=== PATIENT | female | born 2000 | race Hispanic/Latino ===

== ENCOUNTER 2021-07-31 17:52 | Emergency (ER) | payer OTHER, MEDICAID, SELFPAY ==
[2021-07-31 18:10] VITALS: BP 122/80; PULSE 97; RESP 22; TEMP 36.4; O2SAT 97; BMI 41.5
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
[2021-07-31] MEDS: IBUPROFEN 400 MG TABLET 800 MG PO (19:49)
[2021-07-31] MEDS: ACETAMINOPHEN 325 MG TABLET 650 MG PO (19:50)
== END 2021-07-31 19:54 | disposition home or self-care (01) ==
PROVIDERS: Emergency Provider Physician Assistant
DX: M79.644 Pain in right finger(s) (principal); W51.XXXA Accidental striking against or bumped into by another person, initial encounter
CPT/HCPCS: 73130; 99283; 99284

== ENCOUNTER 2021-11-18 23:52 | Emergency (ER) | payer OTHER, MEDICAID, SELFPAY ==
--- NOTE | 2021-11-19 00:02 | DI.RAD.S_ITS ---
PROCEDURE: XR KNEE RT 3V INDICATIONS: fall with knee pain TECHNIQUE: 3 views of the knee were acquired. COMPARISON: None. FINDINGS: Bones: No fractures or dislocations. No suspicious bony lesions. Soft tissues: No joint effusion. No suspicious soft tissue calcifications. IMPRESSION: No osseous trauma found. Dictated by: Candelario Campo M.D. on 11/19/2021 at 0:40 Approved by: Candelario Campo M.D. on 11/19/2021 at 0:40
--- NOTE | 2021-11-19 00:02 | DI.RAD.S_ITS ---
PROCEDURE: XR ANKLE RT MIN 3V INDICATIONS: fall with ankle pain TECHNIQUE: 3 views of the ankle were acquired. COMPARISON: None. FINDINGS: Bones: No fractures or dislocations. Ankle mortise is normally aligned. No suspicious bony lesions. Soft tissues: No tibiotalar joint effusion. Achilles tendon appears normal. IMPRESSION: No trauma found. Dictated by: Candelario Campo M.D. on 11/19/2021 at 0:40 Approved by: Candelario Campo M.D. on 11/19/2021 at 0:41
--- NOTE | 2021-11-19 00:02 | DI.RAD.S_ITS ---
PROCEDURE: XR HIP W PEL IF DONE RT 2V INDICATIONS: fall with R hip pain TECHNIQUE: AP pelvis with lateral view(s) of the right hip(s). COMPARISON: None. FINDINGS: Bones: No fractures or dislocations. Pelvic ring appears intact. No suspicious bony lesions. Soft tissues: The visualized bowel gas pattern is normal. No suspicious soft tissue calcifications. IMPRESSION: No trauma found. Dictated by: Candelario Campo M.D. on 11/19/2021 at 0:39 Approved by: Candelario Campo M.D. on 11/19/2021 at 0:40
--- NOTE | 2021-11-19 00:02 | DI.RAD.S_ITS ---
PROCEDURE: XR LUMBAR SPINE 2-3V INDICATIONS: fall with back pain TECHNIQUE: 2 views of the lumbar spine were acquired. COMPARISON: None. FINDINGS: Bones: 5 [id number] vertebrae are present. There is normal bony alignment. No vertebral body compression fractures. No suspicious bony lesions. Soft tissues: Overlying bowel gas pattern is normal. No suspicious soft tissue calcifications. Surgical clips suggest prior appendectomy. IMPRESSION: No trauma found. Surgical clips at the right lower quadrant suggest prior appendectomy. Dictated by: Candelario Campo M.D. on 11/19/2021 at 0:41 Approved by: Candelario Campo M.D. on 11/19/2021 at 0:42
--- NOTE | 2021-11-19 00:04 | ED_ITS ---
HPI - Fall General Chief Complaint: Fall Stated Complaint: Rt. foot/leg/hip pain due to fall Time Seen by Provider: 11/19/21 00:02 History of Present Illness HPI Narrative: 21-year-old female nonsmoker with noncontributory medical history presents with a friend and a chief complaint of multiple injury suffered as a result of a ground level fall earlier today. At about 6:00 p.m. today she was getting into her car when her right ankle got caught up and caused her to fall onto her right side landing on her hip, knee and ankle. She had some minimal pain initially but states as the day has gone on she is developed increasing pain that starts in her low back goes to her hip, knee and ankle. She has severe pain in his unable to weight bear. She denies any numbness, tingling or weakness. She denies any head neck injury. She denies loss of control of bowel or bladder. She took Motrin with little to no relief prior to her arrival. She states that her last menstrual cycle was a few weeks ago and there is 0 chance of her being . Related Data Previous Rx's Medication Instructions Recorded cyclobenzaprine 10 mg tablet 10 mg PO TID PRN muscle spasm #14 11/19/21 tabs gabapentin 300 mg capsule 300 mg PO BEDTIME #14 caps 11/19/21 hydrocodone 5 mg-acetaminophen 325 1 tab PO Q4-6H PRN pain #10 tabs 11/19/21 mg tablet ketorolac 10 mg tablet 10 mg PO Q6H PRN pain #14 tabs 11/19/21 methylprednisolone 4 mg tablets in See Rx Instructions PO .COMPLEX 11/19/21 a dose pack (Medrol (Antonio)) #21 ea Allergies Allergy/AdvReac Type Severity Reaction Status Date / Time Bleach (Sodium Hypochlorite) Allergy Verified 07/31/21 18:14 Review of Systems Review of Systems Narrative: GENERAL: Denies chills, fatigue, malaise, fever, sweats. HEENT: Denies sinus pain, ear pain, sore throat, difficulty swallowing, dizziness. RESPIRATORY: Denies dyspnea, cough, wheezing, hemoptysis, sputum. CARDIOVASCULAR: Denies chest pain, palpitations, orthopnea, edema, GASTROINTESTINAL: Denies nausea, vomiting, abdominal pain, diarrhea, constipation, melena. : Denies dysuria, frequency, incontinence, hematuria, urinary retention. MUSCULOSKELETAL: See HPI SKIN: Denies rash, skin lesions, or other NEUROLOGIC: Denies weakness, headache, numbness, change in speech, confusion, seizures, incoordination. PSYCHIATRIC: No concerning psychosocial issues. 12 point review of systems is negative except for those stated above Patient History Social History Smoking Status: Former smoker Smoking Status: Former smoker alcohol intake frequency: holidays/special occasions only Substance Use Type: does not use Exam Narrative Exam Narrative: GENERAL: [21] year old patient appears stated age. Well-developed patient, in mild distress. Obviously in pain, enters department in wheelchair HEAD: Atraumatic. Normocephalic. EYES: Pupils equal round and reactive. Extraocular motions intact. No scleral icterus. No injection or drainage. ENT: Nose without bleeding, purulent drainage. Throat without erythema, tonsillar hypertrophy or exudate. Airway patent. NECK: Trachea midline. Non tender CARDIOVASCULAR: Regular rate and rhythm without murmurs, gallops, or rubs. RESPIRATORY: Clear to auscultation. Breath sounds equal bilaterally. No wheezes, rales, or rhonchi. GASTROINTESTINAL: Abdomen soft, non-tender, nondistended. EXTREMITIES: Full but painful range of motion of right hip, knee and ankle. She has increased pain on palpation but no obvious ligamentous instability or effusions, these injuries are closed and neurovascularly intact. BACK: hook tender but free of any obvious external abnormalities. Patient exam notes decreased range of motion and muscle spasm, but no CVA tenderness, or vertebral point tenderness. There are no symptoms of cauda equina such as saddle anesthesia, and decreased reflexes, decreased sensation or strength. NEURO: AOx3. SKIN: No rash or erythema of visible areas Initial Vital Signs Initial Vital Signs: Vital Signs Temperature 98.3 F 11/19/21 00:06 Pulse Rate 78 11/19/21 00:06 Respiratory Rate 18 11/19/21 00:06 Blood Pressure 153/86 H 11/19/21 00:06 Pulse Oximetry 99 11/19/21 00:06 Oxygen Delivery Method 11/19/21 00:06 Course Orders Ordered: ED Orders 11/19/21 00:02 XR ankle RT min 3V Stat XR hip w pel if done RT 2V Stat XR knee RT 3V Stat XR lumbar spine 2-3V Stat Discontinued Medications Hydrocodone Bitart/Acetaminophen (Hydrocodone/Acet 5/325 Prepack) 1 bottle MISC SEEINSTR ONE Stop: 11/19/21 00:05 Last Admin: 11/19/21 00:16 Dose: 1 bottle Documented By: NADIA Prednisone (Prednisone 20 Mg Tablet) 40 mg PO NOW ONE Stop: 11/19/21 01:08 Vital Signs Vital signs: Vital Signs - 8 hr 11/19/21 00:06 Temperature 98.3 F Pulse Rate 78 Respiratory Rate 18 Blood Pressure 153/86 H Pulse Oximetry 99 Oxygen Delivery Method Room Air MDM - Fall Imaging Data Extremity x-ray #1: Radiologist's Impression: [address] [address] XRay Report Signed Patient: Ama Mcghee MR#: [id number] : 2000 Acct:[id number] Age/Sex: 21 / F Date of Service: 11/19/21 Loc: ED Accession Number: [id number] ?? Procedure: XR ankle RT min 3V Ordering Provider: Bernardo Garcia D.O. PROCEDURE:? XR ANKLE RT MIN 3V ? INDICATIONS:? fall with ankle pain ? TECHNIQUE:? 3 views of the ankle were acquired.? ? COMPARISON:? None. ? FINDINGS:? ? Bones:? No fractures or dislocations.? Ankle mortise is normally aligned.? No suspicious bony lesions.? ? Soft tissues:? No tibiotalar joint effusion.? Achilles tendon appears normal.? ? ? IMPRESSION:? No trauma found. ? Dictated by: Candelario Campo M.D. on 11/19/2021 at 0:40 ? ? Approved by: Candelario Campo M.D. on 11/19/2021 at 0:41 ? Extremity x-ray #2: Radiologist's Impression: [address] [address] XRay Report Signed Patient: Ama Mcghee MR#: [id number] : 2000 Acct:[id number] Age/Sex: 21 / F Date of Service: 11/19/21 Loc: ED Accession Number: [id number] ?? Procedure: XR hip w pel if done RT 2V Ordering Provider: Bernardo Garcia D.O. PROCEDURE:? XR HIP W PEL IF DONE RT 2V ? INDICATIONS:? fall with R hip pain ? TECHNIQUE:? AP pelvis with lateral view(s) of the right hip(s).? ? COMPARISON:? None. ? FINDINGS:? ? Bones:? No fractures or dislocations.? Pelvic ring appears intact.? No suspicious bony lesions.? ? Soft tissues:? The visualized bowel gas pattern is normal.? No suspicious soft tissue calcifications.? ? ? IMPRESSION:? No trauma found. ? Dictated by: Candelario Campo M.D. on 11/19/2021 at 0:39 ? ? Approved by: Candelario Campo M.D. on 11/19/2021 at 0:40? Extremity x-ray #3: Radiologist's Impression: [place] [address] XRay Report Signed Patient: Ama Mcghee MR#: [id number] : 2000 Acct:[id number] Age/Sex: 21 / F Date of Service: 11/19/21 Loc: ED Accession Number: [id number] ?? Procedure: XR knee RT 3V Ordering Provider: Bernardo Garcia D.O. PROCEDURE:? XR KNEE RT 3V ? INDICATIONS:? fall with knee pain ? TECHNIQUE:? 3 views of the knee were acquired.? ? COMPARISON:? None. ? FINDINGS:? ? Bones:? No fractures or dislocations.? No suspicious bony lesions.? ? Soft tissues:? No joint effusion.? No suspicious soft tissue calcifications.? ? ? IMPRESSION:? No osseous trauma found. ? ? Dictated by: Candelario Campo M.D. on 11/19/2021 at 0:40 ? ? Approved by: Candelario Campo M.D. on 11/19/2021 at 0:40 ? L Spine: Radiologist's Impression: Close Lumbar Spine X-Ray (Signed) Candelario Campo - 11/19/21 Knee X-Ray (Signed) Candelario Campo - 11/19/21 Hip X-Ray (Signed) Candelario Campo - 11/19/21 Ankle X-Ray (Signed) Candelario Campo - 11/19/21 Hand X-Ray (Signed) Salvatore Trejo - 07/31/21 Launch?Image [address] [address] XRay Report Signed Patient: Ama Mcghee MR#: [id number] : 2000 Acct:[id number] Age/Sex: 21 / F Date of Service: 11/19/21 Loc: ED Accession Number: [id number] ?? Procedure: XR lumbar spine 2-3V Ordering Provider: Bernardo Garcia D.O. PROCEDURE:? XR LUMBAR SPINE 2-3V ? INDICATIONS:? fall with back pain ? TECHNIQUE:? 2 views of the lumbar spine were acquired.? ? COMPARISON:? None. ? FINDINGS:? ? Bones:? 5 [id number] vertebrae are present.? There is normal bony alignment.? No vertebral body compression fractures.? No suspicious bony lesions.? ? Soft tissues:? Overlying bowel gas pattern is normal.? No suspicious soft tissue calcifications.? Surgical clips suggest prior appendectomy. ? ? IMPRESSION:? No trauma found.? Surgical clips at the right lower quadrant suggest prior appendectomy. ? ? Dictated by: Candelario Campo M.D. on 11/19/2021 at 0:41 ? ? Approved by: Candelario Campo M.D. on 11/19/2021 at 0:42 ? Discharge Plan Departure Patient Disposition: Home Clinical Impression: Lumbar radiculopathy, right Instructions: How to Prevent Falls Activity Restrictions/Additional Instructions: *You have been diagnosed with [acute right-sided lumbar radiculopathy. As we discussed your imaging is reassuring and there is no evidence of fracture or dislocation.] *What to do: *Please continue to take your regular medications as directed. [ x] New medication prescriptions sent to your pharmacy: [ [facility]] [ ] New medication written as a paper prescription [ ] No new medications given *Please follow up with your primary care provider in 2-3 days, call for an appointment. Let them know you were seen in the Emergency Department and that we ask that you be seen in follow up. We will electronically transmit a record of today's note if your PCP is in our system *If you do not have a primary care provider please contact the [facility] Resource line at [phone]. They will ask some questions about your medical history and help get you set up with a doctor in the community. *Return to Emergency Department if you should have any new, worsening or concerning symptoms, such as [fever greater than 101 F, shaking chills, worsening pain, persistent vomiting or other bothersome symptoms] You have been prescribed a short course of narcotic medications. These are potentially dangerous and addictive medications that should be used carefully. While on these medications you cannot drive or operate heavy machinery. Additionally, you cannot sign legal documents or perform any duties such as this. Many people get constipated on narcotic medications so it would be advisable to discuss stool softeners with the pharmacist when you citrus picker your prescription. Please understand that we cannot provide further refills of narcotics or controlled substances through the ED and your pain management will need to be through your Primary Care Provider Prescriptions: New cyclobenzaprine 10 mg tablet 10 mg PO TID PRN (Reason: muscle spasm) Qty: 14 0RF hydrocodone-acetaminophen 5-325 mg tablet 1 tab PO Q4-6H PRN (Reason: pain) Qty: 10 0RF ketorolac 10 mg tablet 10 mg PO Q6H PRN (Reason: pain) Qty: 14 0RF gabapentin 300 mg capsule 300 mg PO BEDTIME Qty: 14 0RF methylprednisolone [Medrol (Antonio)] 4 mg tablets,dose pack See Rx Instructions .ROUTE .COMPLEX Qty: 21 0RF Rx Instructions: orally per package directions Referrals: Miscellaneous,Doctor, [Primary Care Provider] -
[2021-11-19 00:06] VITALS: BP 153/86; PULSE 78; RESP 18; TEMP 36.8; O2SAT 99; BMI 42.5
[2021-11-19] MEDS: HYDROCODONE/ACET 5/325 PREPACK 1 BOTTLE MISC (00:16)
[2021-11-19] MEDS: predniSONE 20 MG TABLET 40 MG PO (01:15)
[2021-11-19 01:52] VITALS: PULSE 89; RESP 18; O2SAT 98
== END 2021-11-19 01:53 | disposition home or self-care (01) ==
PROVIDERS: Emergency Provider Emergency Medicine
DX: M54.16 Radiculopathy, lumbar region (principal); M54.50 Low back pain, unspecified; M25.571 Pain in right ankle and joints of right foot; M25.561 Pain in right knee; W18.30XA Fall on same level, unspecified, initial encounter
CPT/HCPCS: 72100; 73502; 73562; 73610; 99283